=== PATIENT | female | born 1970 | race Two or more races ===

== ENCOUNTER 2025-07-10 12:52 | Outpatient (REF) | payer OTHER, SELFPAY ==
--- NOTE | 2025-07-10 13:00 | EMG_ITS ---
Chief complaint: pain in right arm Reason for referral: G56.21 Right upper extremity, CTS and Cubital tunnel syndrome Referred by: DANE Romero Procedure done: NCS and EMG of Right upper extremity Right median and ulnar motor studies were performed with F responses. Right median and ulnar mixed sensory studies, median and lateral antecubital brachial sensory and radial sensory study was performed. EMG was performed. Findings: Motor studies did not reveal any significant abnormality. Similarly, sensory studies were also falling with a normal range. EMG was normal. Impression: This is an unremarkable study with no evidence of entrapment neuropathy or a proximal lesion [place] [id number] [facility]
== END 2025-07-10 12:53 | disposition home or self-care (01) ==
LOC: HO.NEURO 12:52
DX: G56.21 Lesion of ulnar nerve, right upper limb (principal); M79.601 Pain in right arm
CPT/HCPCS: 95886; 95910

== ENCOUNTER → 2025-07-10 13:00 | Outpatient (BNV) | payer OTHER, SELFPAY | PROVIDERS: Visit Provider Psychiatry & Neurology Neurology | DX: G56.21 Lesion of ulnar nerve, right upper limb (principal) | CPT/HCPCS: 95886; 95910 ==